=== PATIENT | female | born 1975 | race Caucasian/White ===

== ENCOUNTER 2017-05-08 11:23 | Emergency (ER) | payer MEDICAID, OTHER ==
[~2017-05-08] VITALS: Ht 162.6 cm; Wt 93.2 kg
[~2017-05-08 11:23] MED LIST: DICY10 PO; ETON68IM SQ; METO10L PO; TOPI25 PO; [UNRECOGNIZED DRUG - CODE] PO; [UNRECOGNIZED DRUG - CODE] PO
[2017-05-08 14:35] VITALS: BP 150/88
== END 2017-05-08 14:35 | disposition home or self-care (01) ==
LOC: EMS 11:25
DX: H10.89 Other conjunctivitis (principal); B99.9 Unspecified infectious disease; J45.909 Unspecified asthma, uncomplicated; I10 Essential (primary) hypertension; G43.909 Migraine, unspecified, not intractable, without status migrainosus; Z88.0 Allergy status to penicillin; Z88.2 Allergy status to sulfonamides; Z88.6 Allergy status to analgesic agent; Z88.5 Allergy status to narcotic agent
CPT/HCPCS: 99283

== ENCOUNTER 2021-03-23 15:09 | Emergency (ER) | payer OTHER ==
[~2021-03-23] VITALS: Ht 162.6 cm; Wt 106.8 kg
[2021-03-23 16:36] LABS: COVID AG,FIA SOURCE NASOPHARYNGEAL
[2021-03-23 17:03] LABS: INFLUENZA TYPE A NEGATIVE FOR TYPE A (NEGATIVE); INFLUENZA TYPE B NEGATIVE FOR TYPE B (NEGATIVE)
[2021-03-23 19:26] VITALS: BP 125/70
== END 2021-03-23 19:30 | disposition home or self-care (01) ==
LOC: EMS 15:10
DX: J06.9 Acute upper respiratory infection, unspecified (principal); Z88.0 Allergy status to penicillin; Z88.2 Allergy status to sulfonamides; Z88.5 Allergy status to narcotic agent; Z88.6 Allergy status to analgesic agent; Z79.899 Other long term (current) drug therapy; Z20.822 Contact with and (suspected) exposure to COVID-19
CPT/HCPCS: 87426; 87804; 99283; U0003